=== PATIENT | female | born 1990 | race Hispanic/Latino ===

== ENCOUNTER 2020-03-18 13:11 | Emergency (ER) | payer BC ==
[2020-03-18] MEDS ORDERED: ACETAMINOPHEN 325 MG TABLET ONE ×2 (13:44→15:51)
--- NOTE | 2020-03-18 15:01 | RAD REPORT ---
EXAM DESCRIPTION: RAD - Chest Pa And Lat (2 Views) - 03/18/2020 2:50 pm CLINICAL HISTORY: Chest pain;Cough;SOB Chest pain. COMPARISON: No comparisons FINDINGS: Mild interstitial lung opacities are present bilaterally in the lower lungs, greater on th e left. This is most compatible with viral pneumonitis/ bronchitis. The heart is normal in size.
[2020-03-18] MEDS ORDERED: dexAMETHasone 10 MG/ML VIAL ONE (15:51)
[2020-03-18] MEDS ORDERED: LEVALBUTEROL 1.25 MG/3 ML NEB ONE (15:51)
--- NOTE | 2020-03-18 17:53 | ER ---
Nurse's Notes [facility] Name: Cailin Resendez Age: 29 yrs Sex: Female : 1990 Arrival Date: 03/18/2020 Time: 13:13 Bed 15 Private MD: Devan Negrete Diagnosis: Coronavirus infection, unspecified Presentation: 03/18 13:17 Chief complaint: Patient states: tested Covid+ 03/11/2020. S/S started 03/10/2020. SOB ca1 worse today, chest pain bilateral, more on the R. Coronavirus screen: Client denies travel out of the [place] in the last 14 days. Client reports previous positive COVID test result. Date of collection: March 11, 2020 Staff notified of need for isolation. Ebola Screen: Patient negative for fever greater than or equal to 101.5 degrees Fahrenheit, and additional compatible Ebola Virus Disease symptoms Patient denies exposure to infectious person. Patient denies travel to an Ebola-affected area in the 21 days before illness onset. No symptoms or risks identified at this time. Initial Sepsis Screen: Does the patient meet any 2 criteria? No. Patient's initial sepsis screen is negative. Does the patient have a suspected source of infection? No. Patient's initial sepsis screen is negative. Risk Assessment: Do you want to hurt yourself or someone else? Patient reports no desire to harm self or others. Onset of symptoms was March 10, 2020. 13:17 Method Of Arrival: Ambulatory ca1 13:17 Acuity: ERNA 2 ca1 Triage Assessment: 16:00 Respiratory: Onset: The symptoms/episode began/occurred yesterday. iw 18:00 General: Appears in no apparent distress. Behavior is calm. Respiratory: Reports iw shortness of breath cough that is the patient has moderate shortness of breath. 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 - Social history:: Smoking status: Patient denies any tobacco usage or history of. Screenin:11 Abuse screen: Denies threats or abuse. Denies injuries from another. Nutritional iw screening: No deficits noted. Tuberculosis screening: No symptoms or risk factors identified. Fall Risk None identified. Assessment: 16:00 Pain: Complains of pain in head and chest. Cardiovascular: Rhythm is regular. iw Respiratory: Airway is patent Respiratory effort is even, Breath sounds are diminished bilaterally. 17:11 Reassessment: Patient appears in no apparent distress at this time. Patient and/or iw family updated on plan of care and expected duration. Pain level reassessed. Patient is alert, oriented x 3, equal unlabored respirations, skin warm/dry/pink. pt remains tachycardic at 116 bpm, NS infusing to RAC, will continue to monitor. Vital Signs: 13:17 BP 116 / 82; Pulse 125; Resp 20; Temp 100.4(O); Pulse Ox 93% on R/A; Weight 81.65 kg ca1 (R); Height 5 ft. 3 in. (160.02 cm) (R); Pain 8/10; 17:10 BP 102 / 73; Pulse 116; Resp 20 S; Pulse Ox 94% on R/A; iw 13:17 Body Mass Index 31.89 (81.65 kg, 160.02 cm) ca1 ED Course: 13:13 Patient arrived in ED. am4 13:16 Devan Negrete MD is Private Physician. am4 13:20 Triage completed. ca1 13:20 Arm band placed on right wrist. ca1 14:48 Chest Pa And Lat (2 Views) XRAY In Process Unspecified. EDMS 15:07 Ad Werner PA is PHCP. [facility] 15:07 Martin Manzo MD is Attending Physician. jm 15:09 Suma Cochran, NOELLE is Primary Nurse. iw 16:00 Patient has correct armband on for positive identification. iw 17:02 Inserted saline lock: 20 gauge in right antecubital area, using aseptic technique. dh4 Blood collected. 18:22 No provider procedures requiring assistance completed. IV discontinued, intact, iw bleeding controlled, No redness/swelling at site. Pressure dressing applied. Administered Medications: 13:33 Drug: Tylenol 650 mg Route: PO; ca1 15:46 Drug: Decadron 10 mg Route: IM; Site: right deltoid; iw 15:46 Drug: Xopenex (3) 1.25 mg Route: Inhalation; iw 17:09 Drug: NS 0.9% 1000 ml Route: IV; Rate: 1 bolus; Site: right antecubital; Outcome: 17:51 Discharge ordered by . irineo 18:23 Discharged to home ambulatory, with family. iw 18:23 Condition: good 18:23 Discharge instructions given to patient, Instructed on discharge instructions, follow up and referral plans. medication usage, Demonstrated understanding of instructions, follow-up care, medications, Prescriptions given X 4. 18:24 Patient left the ED. iw Signatures: Dispatcher [employer] EDMS Ad Werner PA PA jmm Williams, Irene RN RN Kavita Camarillo RN RN [facility] Ar Garrett [facility] Alpa Patino am
--- NOTE | 2020-03-18 17:53 | EDPHYS ---
Physician Documentation [facility] Name: Cailin Resendez Age: 29 yrs Sex: Female : 1990 Arrival Date: 03/18/2020 Time: 13:13 Bed 15 Private MD: Devan Negrete ED Physician Martin Manzo HPI: 03/18 15:43 This 29 yrs old Female presents to ER via Ambulatory with complaints of jmm Shortness Of Breath, Chest Pain, COVID +. 15:43 The patient has shortness of breath at rest. Onset: The symptoms/episode began/occurred jmm gradually, 1 week(s) ago. Duration: The symptoms are continuous, and are markedly worse than the original presentation. The patient's shortness of breath is aggravated by nothing, is alleviated by nothing. This is a 29 year old female with no chronic medical conditions that presents to the ED with complaints of cough, shortness of breath beginning approx 1 week ago after being diagnosed with covid 19. . 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 - Social history:: Smoking status: Patient denies any tobacco usage or history of. ROS: 15:43 Constitutional: Positive for fever. jmm 15:43 Respiratory: Positive for cough, shortness of breath. 15:43 All other systems are negative. Exam: 15:43 Constitutional: This is a well developed, well nourished patient who is awake, alert, jmm and in no acute distress. Head/Face: atraumatic. Eyes: EOMI, no conjunctival erythema appreciated ENT: Moist Mucus Membranes Neck: Trachea midline, Supple Chest/axilla: Normal chest wall appearance and motion. Cardiovascular: Regular rate and rhythm. No edema appreciated Respiratory: Normal respirations, no respiratory distress appreciated Abdomen/GI: Non distended, soft Back: Normal ROM Skin: General appearance color normal MS/ Extremity: Moves all extremities, no obvious deformities appreciated, no edema noted to the lower extremities Neuro: Awake and alert, normal gait Psych: Behavior is normal, Mood is normal, Patient is cooperative and pleasant Vital Signs: 13:17 BP 116 / 82; Pulse 125; Resp 20; Temp 100.4(O); Pulse Ox 93% on R/A; Weight 81.65 kg ca1 (R); Height 5 ft. 3 in. (160.02 cm) (R); Pain 8/10; 17:10 BP 102 / 73; Pulse 116; Resp 20 S; Pulse Ox 94% on R/A; iw 13:17 Body Mass Index 31.89 (81.65 kg, 160.02 cm) ca1 MDM: 15:29 Patient medically screened. [facility] 17:50 Data reviewed: vital signs, nurses notes. Counseling: I had a detailed discussion with irineo the patient and/or guardian regarding: the historical points, exam findings, and any diagnostic results supporting the discharge/admit diagnosis, lab results, radiology results, the need for outpatient follow up, to return to the emergency department if symptoms worsen or persist or if there are any questions or concerns that arise at home. ED course: Patient is alert and non toxic in appearance in the ED. No signs of resp distress. Patient states she feels much better. Patient is given strict return precautions. Patient understood and agrees with the plan of care. . 03/18 13:26 Order name: Chest Pa And Lat (2 Views) XRAY; Complete Time: 15:07 ca1 03/18 13:26 Order name: EKG; Complete Time: 13:26 ca1 03/18 13:26 Order name: EKG - Nurse/Tech; Complete Time: 13:33 ca1 Administered Medications: 13:33 Drug: Tylenol 650 mg Route: PO; ca1 15:46 Drug: Decadron 10 mg Route: IM; Site: right deltoid; iw 15:46 Drug: Xopenex (3) 1.25 mg Route: Inhalation; iw 17:09 Drug: NS 0.9% 1000 ml Route: IV; Rate: 1 bolus; Site: right antecubital; iw Disposition: 03/19 06:57 Co-signature as Attending Physician, Martin Manzo MD I agree with the assessment and kdr plan of care. Disposition: 03/18/20 17:51 Discharged to Home. Impression: Coronavirus infection, unspecified. - Condition is Stable. - Discharge Instructions: COVID-19. - Prescriptions for ivermectin 3 mg Oral tablet - take 6 tablet by ORAL route as directed 1st dose day one, 2nd dose day three; 12 tablet. Prednisone 20 mg Oral Tablet - take 3 tablet by ORAL route once daily for 5 days; 15 tablet. Zithromax Z- Erasmo 250 mg Oral Tablet - take 1 tablet by ORAL route as directed for 5 days Day 1 - take two (2) tablets one time. Day 2, 3, 4 , 5 take one (1) tablet once daily.; 6 tablet. Albuterol Sulfate 90 mcg/actuation - inhale 1-2 puff by INHALATION route every 4-6 hours; 1 Inhaler. - Medication Reconciliation Form, Thank You Letter, Antibiotic Education, Prescription Opioid Use form. - Follow up: Private Physician; When: 2 - 3 days; Reason: Recheck today's complaints, Continuance of care, Re-evaluation by your physician. Signatures: Dispatcher [employer] EDMS Martin Manzo MD MD kdr Mickail, Joel, PA PA jmm Williams, Irene, RN RN iw Kavita Camarillo RN RN ca1 Corrections: (The following items were deleted from the chart) 03/18 18:24 17:51 03/18/2020 17:51 Discharged to Home. Impression: Coronavirus infection, iw unspecified. Condition is Stable. Forms are Medication Reconciliation Form, Thank You Letter, Antibiotic Education, Prescription Opioid Use. Follow up: Private Physician; When: 2 - 3 days; Reason: Recheck today's complaints, Continuance of care, Re-evaluation by your physician. irineo
[2020-03-18 22:34] VITALS: TEMP 100.4
[2020-03-18 22:35] VITALS: BP 102/73; O2SAT 94
--- NOTE | 2020-03-19 07:54 | EKG ---
Test Date: 2020-03-18 Test Time: 13:30:29 Vp Human Resources: EDMUNDO MEASUREMENT RESULTS: Intervals: Rate: 114 CO: 118 QRSD: 70 QT: 310 QTc: 427 [place]: P: 46 CO: 118 QRS: 79 T: 15 INTERPRETIVE STATEMENTS: Sinus tachycardia Nonspecific T wave abnormality Abnormal ECG No previous ECG available for comparison Electronically Signed On 03-19-20 07:49:46 FORENSIC TOXICOLOGIST by Deo Mao
== END 2020-03-18 18:24 | disposition home or self-care (01) ==
LOC: ER 13:11
DX: U07.1 COVID-19 (principal)
CPT/HCPCS: 93005; 71046; 96372; 99284; J1100